=== PATIENT | male | born 1975 | race Caucasian/White ===

== ENCOUNTER 2020-08-07 19:18 | Emergency (ER) | payer BC ==
--- NOTE | 2020-08-07 19:54 | EDM.PDOC ---
ED HPI GENERAL MEDICAL PROBLEM - General Chief Complaint: Allergic Reaction Stated Complaint: POSS ALLERGIC REACTION; CHEST AND JAW SWELLING Time Seen by Provider: 08/07/20 19:40 Source of Information: Reports: Patient, RN Notes Reviewed History Limitations: Reports: No Limitations - History of Present Illness INITIAL COMMENTS - FREE TEXT/NARRATIVE: Patient is a 44-year-old male who presents to the ER for evaluation of a possible medication reaction. Notes that he had oral surgery done by Dr. Chang in [facility] earlier this week, and after this he developed some swelling to his right lower jaw. The doctor did arrange for him to get IM Rocephin, and receive oral penicillin for ongoing management of this. He received his first IM Rocephin injection at around 10 this morning, and has taken two doses of penicillin since then. He did appreciate some redness, that did extend down his chest, from his neck and more of a V-shaped distribution. He notes this is not itchy, it is not bothersome. He is denying any difficulty breathing, swallowing, any worsening fevers or chills, or any sort of nausea/vomiting/diarrhea. He was concerned because he is not had these antibiotics before, and he thought that he could be having a medication reaction. - Related Data Allergies Allergy/AdvReac Type Severity Reaction Status Date / Time No Known Allergies Allergy Verified 08/07/20 19:55 Home Meds: Home Meds Cetirizine [ZyrTEC] 10 mg PO DAILY 08/07/20 [History] Fluticasone Propionate [Flonase] 1 inh BRITTANY DAILY 08/07/20 [History] Past Medical History - Past Surgical History HEENT Surgical History: Reports: Oral Surgery, Tonsillectomy GI Surgical History: Reports: Hernia Repair/Other Social & Family History - Tobacco Use Tobacco Use Status *Q: Current Every Day Tobacco User Years of Tobacco use: 30 Packs/Tins Daily: 1 - Caffeine Use Caffeine Use: Reports: Coffee - Recreational Drug Use Recreational Drug Use: No ED ROS ALLERGIC REACTION - Review of Systems Review Of Systems: Comprehensive ROS is negative, except as noted in HPI. ED EXAM GENERAL NO PERIP PULSE - Physical Exam Exam: See Below Exam Limited By: No Limitations General Appearance: Alert, WD/WN, No Apparent Distress Throat/Mouth: Normal Inspection, Normal Lips, Normal Teeth, Normal Gums, Normal Oropharynx, Normal Voice, No Airway Compromise Head: Atraumatic, Facial Swelling (swelling to right lower mandible, he states that this is much better however.) Neck: Supple, Non-Tender, Full Range of Motion Cardiovascular: Normal Peripheral Pulses, Regular Rate, Rhythm, No Edema Extremities: Normal Inspection, Normal Capillary Refill Neurological: Alert, Oriented, Normal Cognition, No Motor/Sensory Deficits Psychiatric: Normal Affect, Normal Mood Skin Exam: Warm, Dry, Intact, Normal Color, No Rash Course - Vital Signs Last Recorded V/S: Last Vital Signs Temp 97.6 F 08/07/20 19: Pulse 74 08/07/20 19:27 Resp 16 08/07/20 19: BP 147/82 H 08/07/20 19: Pulse Ox 95 08/07/20 19:27 - Re-Assessments/Exams Free Text/Narrative Re-Assessment/Exam: 08/07/20 19:59 Patient presents to the ER for his suspected medication reaction, I did evaluate him, I do not believe this to be a medication reaction to the Rocephin or penicillin. This does appear to be more of a possible skin infection or cellulitis in nature versus contact irritant dermatitis. I told him to continue to go ahead with the plan set forth by Dr. Chang regarding IM Rocephin and the or penicillin. Patient verbalized understanding. Departure - Departure Time of Disposition: 19:50 Disposition: Home, Self-Care 01 Condition: Good Clinical Impression: Cellulitis Qualifiers: Site of cellulitis: neck Qualified Code(s): L03.221 - Cellulitis of neck - Discharge Information *PRESCRIPTION DRUG MONITORING PROGRAM REVIEWED*: No *COPY OF PRESCRIPTION DRUG MONITORING REPORT IN PATIENT REENA: No Instructions: Cellulitis, Adult, [id number] Referrals: PCP,None [Primary Care Provider] - Forms: ED Department Discharge Additional Instructions: You were evaluated in the ER today for your ongoing skin complaint. You were evaluated, and you are not having a medication reaction due to the IM Rocephin and penicillins that you have been prescribed. Please continue to take the penicillins as prescribed, and go to the walk-in clinic tomorrow, for a repeat injection of IM Rocephin. This will provide you the best coverage for the infection that you have going on. If the redness starts spreading, more than two finger widths then where it already is, this would be too much and you should come back to the ER for reevaluation and further management also if you should develop any sort of difficulty swallowing, breathing, increased fevers, these would be more causes for concern to come back to the ER for urgent management. Sepsis Event Note (ED) - Evaluation Sepsis Screening Result: No Definite Risk - Focused Exam Vital Signs: Vital Signs Temp Pulse Resp BP Pulse Ox 08/07/20 19:27 97.6 F 74 16 147/82 H 95
== END 2020-08-07 20:14 | disposition home or self-care (01) ==
LOC: JD.ED 19:18
DX: L03.221 Cellulitis of neck (principal); Z72.0 Tobacco use
CPT/HCPCS: 99283